=== PATIENT | female | born 1955 | race Caucasian/White ===

== ENCOUNTER 2016-11-19 09:52 | Emergency (ER) | payer SELFPAY ==
[~2016-11-19] VITALS: Ht 157.5 cm; Wt 72.6 kg
[2016-11-19 10:02] VITALS: BP 133/79
--- NOTE | 2016-11-19 10:04 | NUR ---
PT AMBULATED TO BED 2 AT THIS TIME.
[2016-11-19] MEDS ORDERED: DEXAMETHASONE 4 MG TAB PO ONE (10:05)
[2016-11-19] MEDS ORDERED: METOCLOPRAMIDE 10 MG TAB PO ONE (10:05)
[2016-11-19] MEDS ORDERED: METHOCARBAMOL 500 MG TAB PO SCH (10:05)
[2016-11-19] MEDS ORDERED: diphenhydrAMINE 50 MG CAP PO ONE (10:05)
--- NOTE | 2016-11-19 10:05 | NUR ---
61/f bib daughter for headache since wednesday. denies dizziness, n/v, blured vision. denies any pmh. denies allergies. sts took tylenol last night for pain, no relief.
--- NOTE | 2016-11-19 10:15 | NUR ---
Patient being evaluated by physician at bedside.
--- NOTE | 2016-11-19 11:20 | NUR ---
ORANGE SURVEY GIVEN TO PT.
[2016-11-19 11:40] VITALS: BP 130/77
--- NOTE | 2016-11-19 11:40 | NUR ---
Patient discharged with v/s stable. Written and verbal after care instructions given and explained. Patient alert, oriented and verbalized understanding of instructions. Ambulatory with DAUGHTER. All questions addressed prior to discharge. ID band removed. Patient advised to follow up with PMD. Rx of MOTRIN AND ROBAXIN given. Patient educated on indication of medication including possible reaction and side effects. Opportunity to ask questions provided and answered.
== END 2016-11-19 11:40 | disposition home or self-care (01) ==
LOC: MED 09:52
DX: R51 Headache (principal)
CPT/HCPCS: 99284; J8597; Q0163

== ENCOUNTER 2016-12-08 21:13 | Emergency (ER) | payer SELFPAY ==
[~2016-12-08] VITALS: Ht 154.9 cm; Wt 63.5 kg
[2016-12-08 21:33] VITALS: BP 117/86
--- NOTE | 2016-12-09 00:37 | NUR ---
PT TAKEN TO CT FROM [facility]
--- NOTE | 2016-12-09 00:47 | NUR ---
PT RETURN FROM CT TO BED 6
--- NOTE | 2016-12-09 00:55 | NUR ---
61 Y/O F W/C/O R HEADACHE S/P FALLING AND HITTING HEAD WITH BED BOARD. DENIES ANY VISIAL CHANGES, DIZZINESS, LOC, FEVER, NAUSEA OR VOMITTING. PT ON MONITOR, C/O PAIN 07/13. ER MD NOTIFIED.
--- NOTE | 2016-12-09 01:09 | NUR ---
Dr. Norman evaluating patient at bedside.
[2016-12-09] MEDS ORDERED: KETOROLAC 30 MG/ML VIAL IM ONE (01:15)
[2016-12-09 02:02] VITALS: BP 127/67
--- NOTE | 2016-12-09 02:02 | NUR ---
Patient discharged with v/s stable. Written and verbal after care instructions given and explained. Patient alert, oriented and verbalized understanding of instructions. Ambulatory with steady gait. All questions addressed prior to discharge. ID band removed. Patient advised to follow up with PMD. Rx of MOTRIN 600MG given. Patient educated on indication of medication including possible reaction and side effects. Opportunity to ask questions provided and answered.
== END 2016-12-09 02:02 | disposition home or self-care (01) ==
LOC: MED 21:13
DX: S09.90XA Unspecified injury of head, initial encounter (principal); R51 Headache; W06.XXXA Fall from bed, initial encounter; Y93.89 Activity, other specified; Y92.89 Other specified places as the place of occurrence of the external cause; Y99.8 Other external cause status
CPT/HCPCS: 70450; 81025; 96372; 99284; J1885